=== PATIENT | male | born 1940 | race Caucasian/White ===

== ENCOUNTER 2018-01-08 07:00 | Day surgery (SDC) | payer OTHER ==
[2018-01-04 16:03] LABS: Absolute Lymphocytes (CBC) 2.7 K/uL (0.7-4.9); Absolute Monocytes 0.8 K/uL (0.1-1.3); Absolute Neutrophil 4.2 K/uL (1.8-8.0); Basophils % 0.6 % (0-1.3); Eosinophils % 1.7 % (0-4.4); Hematocrit 43.1 % (39.6-49.0); Lymphocytes % 33.9 % (15.3-44.8); MCH 31.7 pg (27.0-35.0); MCV 94.8 fL (80-100); MPV 8.2 fL (7.6-11.3); Monocytes % 10.6 % (3.3-12.3); RBC Red Blood Cell Count 4.55 M/uL (4.33-5.43)
[2018-01-04 16:07] LABS: Protime INR 0.98
[2018-01-04 16:15] LABS: BUN Blood Urea Nitrogen 16 mg/dL (6-20); Bicarbonate 24 mEq/L (21-31); Glucose Level 113 mg/dL (65-120); Potassium 4.1 mEq/L (3.6-5.0); Sodium Level 137 mEq/L (135-145)
--- NOTE | 2018-01-04 16:21 | RAD REPORT ---
EXAM DESCRIPTION: RAD - Chest Pa And Lat (2 Views) - 01/04/2018 3:56 pm CLINICAL HISTORY: Preop chest, pending cardiac catheterization COMPARISON: July 2011 TECHNIQUE: PA and lateral views of the chest were obtained. FINDINGS: The lungs are clear. Interstitial markings are not significantly different from compariso n. Heart size is normal and central vasculature is within normal limits. No pleural effusion or pneu mothorax seen. No acute bony finding noted. No aortic abnormality. IMPRESSION: No acute cardiopulmonary process. No significant or suspicious change from comparison e xam.
[~2018-01-08 07:00] MED LIST: ATROPINE SULF 1 MG/10 ML SYR IV ONE; HEPA 1000U/500MLS 2,000 UNIT/1,000 ML BAG IV ONE; HEPARIN 5000 UNIT/ML 1 ML VIAL ONE; NA CHLORIDE 0.9% 0 ML ONE; NA CHLORIDE 0.9% 500 ML ONE; NICARDIPINE HCL 25 MG/10 ML IV ONE; NITROGLYCERIN/D5W 25 MG/250 ML BTL IV ONE
--- OUTSIDE RECORDS SUMMARY | 2018-01-08 07:12 | XMS REPORT | Clinical Summary ---
:1940 Author Organization [facility] Address [address] [place] [address] Care Team Providers Name Role Phone Lauren Youssef MD Primary Care Provider Unavailable Allergies Active Allergy Reactions Severity Noted Date Comments Gabapentin 01/10/2017 Promethazine 01/10/2017 Bacitracin-Polymyxin B Swelling 01/10/2017 Current Medications Prescription Sig. Disp. Refills Start Date End Date Status clopidogrel Take 75 mg by Active (PLAVIX) 75 mg mouth daily. tablet niacin 500 MG Take 500 mg by Active tablet mouth daily with breakfast. ezetimibe-simvastat Take 1 tablet Active in (VYTORIN) 10-10 by mouth mg per tablet nightly. omega Take by mouth. Active 1-sxj-rfy-fish oil (FISH OIL) 1,000 mg (120 mg-180 mg) capsule aspirin (ECOTRIN) Take 81 mg by Active 81 MG enteric mouth daily. coated tablet MULTIVIT-MIN/FA/LYC Take by mouth. Active OPEN/LUTEIN (CENTRUM SILVER MEN ORAL) esomeprazole Take 40 mg by Active (NexIUM) 40 MG mouth daily capsule before breakfast. PRN meloxicam (MOBIC) Take 7.5 mg by Active 7.5 mg tablet mouth daily. PRN tamsulosin (FLOMAX) Take 0.4 mg by 01/13/2017 Discontinued 0.4 mg mouth daily. capsule,extended release 24hr acetaminophen-codei Take 1-2 30 tablet 0 01/13/2017 01/20/2017 ne (TYLENOL WITH tablets by CODEINE #3) 300-30 mouth every 6 mg per tablet (six) hours as needed for moderate pain for up to 7 days. ciprofloxacin Take 1 tablet 14 tablet 0 01/13/2017 01/20/2017 (CIPRO) 500 MG (500 mg total) tablet by mouth 2 (two) times a day for 7 days. hyoscyamine Take 1 tablet 30 tablet 2 01/13/2017 02/12/2017 (LEVSIN/SL) 0.125 (0.125 mg mg SL tablet total) by mouth every 4 (four) hours as needed for cramping for up to 30 days. Active Problems No known active problems Encounters Date Type Specialty Care Team Description 01/13/2017 Hospital Encounter General Surgery Shantelle Rausch MD 01/13/2017 Procedure Pass General Surgery 01/13/2017 Surgery General Surgery Shantelle Rausch CYSTEARL WOODS MD 01/12/2017 Anesthesia Event General Surgery Koby Gibbs MD after 01/07/2017 Social History Tobacco Use Types Packs/Day Years Used Date Former Smoker 2 5 Quit: 01/11/1968 Alcohol Use Drinks/Week oz/Week Comments Yes occasional Sex Assigned at Date Recorded Not on file Last Filed Vital Signs Vital Sign Reading Time Taken Blood Pressure 113/58 01/13/2017 4:10 PM CDT Pulse 71 01/13/2017 4:10 PM CDT Temperature 36.6 C (97.9 F) 01/13/2017 4:10 PM CDT Respiratory Rate 18 01/13/2017 4:10 PM CDT Oxygen Saturation 98% 01/13/2017 4:10 PM CDT Inhaled Oxygen Concentration - - Weight 81.6 kg (180 lb) 01/10/2017 12:08 PM CDT Height 170.2 cm (5' 7") 01/10/2017 12:08 PM CDT Body Mass Index 28.19 01/10/2017 12:08 PM CDT Plan of Treatment Health Maintenance Due Date Last Done Comments SHINGRIX VACCINE (#1) 1989 ZOSTER VACCINE 1999 PNEUMOCOCCAL POLYSACCHARIDE VACCINE AGE 65 AND OVER 2004 PNEUMOCOCCAL-13 2004 INFLUENZA VACCINE 03/07/2018 Procedures Procedure Name Priority Date/Time Associated Diagnosis Comments [place] AN ELECTIVE Routine 01/13/2017 2:24 PM SUPRAGLOTTIC AIRWAY CDT Procedure Note - Rm Cazares MD - 01/13/2017 2:23 PM CDT Airway Date/Time: 01/13/2017 2:17 PM Performed by: RM CAZARES Authorized by: RM CAZARES Location: OR Urgency: Elective Difficult Airway: No Anesthesiologist: RM CAZARES Preoxygenated with 100% O2: Yes C-spine Precautions Maintained Throughout: Yes Mask Ventilation: Easy mask Final Airway Type: Supraglottic airway Final LMA: Classic LMA Size: 4 Number of Attempts at Approach: 1 CYSTOSCOPY, TURP 01/13/2017 1:30 PM CDT N40.1 Special Needs O/P after 01/07/2017 Results Sodium level, whole blood (01/13/2017 1:11 PM) Component Value Ref Range Sodium, whole blood 142 135 - 148 mEq/L Specimen Performing Laboratory Plasma specimen [facility] PATHOLOGY AND [facility] MED[facility] [address] [place] [phone] Potassium, whole blood (01/13/2017 1:11 PM) Component Value Ref Range Potassium, whole blood 4.1 3.5 - 5.5 mEq/L Specimen Performing Laboratory Plasma specimen [facility] PATHOLOGY AND [facility] [address] [place] [address] Glucose, whole blood (01/13/2017 1:11 PM) Component Value Ref Range Glucose, whole blood 112 (H) 65 - 99 mg/dL Specimen Performing Laboratory Plasma specimen [facility] PATHOLOGY [address] [address] Creatinine, whole blood (01/13/2017 1:11 PM) Component Value Ref Range Creatinine, whole blood 0.8 0.5 - 1.5 mg/dL Specimen Performing Laboratory Plasma specimen [facility] PATHOLOGY AND [facility] [address] [place] [phone] BUN, whole blood (01/13/2017 1:11 PM) Component Value Ref Range BUN, whole blood 16 5 - 26 mg/dL Specimen Performing Laboratory Plasma specimen [facility] PATHOLOGY AND [facility] [address] [place] [phone] HCT, whole blood (01/13/2017 1:11 PM) Component Value Ref Range Hematocrit, whole blood 42.0 36.0 - 50.0 % Specimen Performing Laboratory Plasma specimen [facility] PATHOLOGY [address] [address] Hemoglobin, whole blood (01/13/2017 1:11 PM) Component Value Ref Range Hemoglobin, whole blood 14.3 11.0 - 17.0 g/dL Comment: POC testing for Sodium, Potassium, Glucose, Urea, Creatinine, Hemoglobin, and Hematocrit performed in Perioperative Services. Test result (s) entered into LIS by Laboratory Services. Specimen Performing Laboratory Plasma specimen [facility] DEPARTMENT OF PATHOLOGY AND GENOMIC MEDICINE [address] [place] [phone] Urinalysis screen and microscopy, with reflex to culture (01/13/2017 12:40 PM) Component Value Ref Range Specimen site Clean catch Color, UA Yellow YELLOW Appearance, UA Clear Clear Specific gravity, UA 1.020 1.005 - 1.030 pH, UA 5.5 5.0 - 8.0 Protein, UA Negative Negative Glucose, UA Negative Negative Ketones, UA Negative Negative Bilirubin, UA Negative Negative Blood, UA Negative Negative Nitrite, UA Negative NEGATIVE Urobilinogen, UA <2.0 <2.0 E.U./dL Leukocyte esterase, UA Negative Negative WBC, UA <1 0 - 5 /Hpf RBC, UA 1 0 - 5 /HPF Bacteria, UA None seen None seen Yeast, UA None seen None Seen Yeast with pseudohyphae, UA None seen Specimen Performing Laboratory Urine [facility] OF PATHOLOGY AND GENOMIC MEDICINE [address] [place] [phone] Urine culture (01/13/2017 12:40 PM) Component Value Ref Range Urine culture SEE COMMENTComment: Bacteriuria screen negative. Specimen Performing Laboratory [facility] OF PATHOLOGY AND GENOMIC MEDICINE [address] [place] [phone] Surgical pathology request (01/13/2017 10:47 AM) Component Value Ref Range Surgical pathology report See link below for PDF Lab Report Specimen Performing Laboratory [facility] DEPARTMENT OF PATHOLOGY AND GENOMIC MEDICINE [address] [place] [address] ECG 12 lead (01/10/2017 12:52 PM) Component Value Ref Range Ventricular rate 49 Atrial rate 49 [place] interval 198 QRSD interval 86 QT interval 480 QTC interval 433 P axis 1 57 QRS axis 1 19 T wave axis 64 EKG impression Marked sinus bradycardia-Abnormal ECG-- Specimen Performing Laboratory [facility] [address] [place] [address] Estimated GFR (01/10/2017 12:43 PM) Component Value Ref Range GFR Non Af Amer 82 mL/min/1.73 m2 GFR Af Amer >90 mL/min/1.73 m2 Comment: Chronic kidney disease: <60 mL/min/1.73m2 Kidney failure: <15 mL/min/1.73m2 The estimated GFR is calculated from the IDMS-traceable Modification of Diet in Renal Disease Equation. The accuracy of the calculation is poor when the creatinine is normal. Calculated values >90 mL/min/1.73m2 are not reported. This equation has not been validated in children (<18 years), women, the elderly (>70 years), or ethnic groups other than Caucasians and Americans. Specimen Performing Laboratory Plasma specimen [facility] DEPARTMENT OF PATHOLOGY AND GENOMIC MEDICINE [address] [place] [address]. [address] [place] [address] Basic metabolic panel (01/10/2017 12:43 PM) Component Value Ref Range Sodium 144 135 - 148 mEq/L Potassium 5.3 (H) 3.5 - 5.0 mEq/L Chloride 104 99 - 109 mEq/L CO2 28 24 - 31 mEq/L Anion gap 12 7 - 15 mEq/L Comment: Starting from November , anion gap calculation no longer incorporates potassium. Please note the change. BUN 17 8 - 24 mg/dL Creatinine 0.9 0.5 - 1.5 mg/dL Glucose 93 65 - 99 mg/dL Calcium 9.7 8.6 - 10.6 mg/dL Specimen Performing Laboratory Plasma specimen [facility] DEPARTMENT OF PATHOLOGY AND GENOMIC MEDICINE [id number] [place] [address]. [address] [place] [phone] after 01/07/2017 Insurance Payer Benefit Plan / Group Subscriber ID Type Phone Address [employer] MED[employer]ARE AETNA MEDICARE HMO/PPO [facility] xxxxxxxx HMO Home: [id number] via [phone] [address]
[2018-01-08] MEDS ORDERED: LIDOCAINE 1% 20 ML MDV ONE (07:37)
[2018-01-08] MEDS ORDERED: MIDAZOLAM HCL 2 MG/2 ML INJ ONE ×2 (07:37→08:10)
[2018-01-08] MEDS ORDERED: FENTANYL CITR 100 MCG/2 ML ONE (07:37)
--- NOTE | 2018-01-08 11:08 | OP ---
Surgeon: Vick Kaye MD Procedure: Left heart catheterization, coronary left ventricular angiography. Procedure Findings: The patient has a totally occluded right coronary artery. He gets collateral fl ow from the circumflex and second diagonal coronary arteries with DWAIN-3 collateral flow. The LAD dumont s occluded distally. It is after a very large first and second diagonal. The second diagonal is par ticularly large. The occluded LAD fills from collaterals from the RV branch of the right coronary. Left ventricular ejection fraction about 45%. There is akinesis of the inferior wall. The proximal LAD and both of its large diagonals are free of any stenosis and the circumflex is free of any stenos is. Stents in the LAD and circumflex are widely patent. The right coronary is occluded within an ol d stent and the recommendation is for continued medical therapy. 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 Procedure In Detail: The patient was brought to the cardiac parking lot laborer in a fasting state, prepared an d draped in usual sterile fashion. Right radial approach was used. Tissues over the right radial ar tc were anesthetized using 1% lidocaine. The artery was entered using a 21-gauge needle. A 0.021 inch diameter guidewire was used to cannulate the artery and then modified Seldinger technique allowe d us to place a 6-Syriac Terumo radial sheath in place. This was flushed. Radial cocktail was given consisting of nicardipine, heparin, nitroglycerin. We guided a TIG catheter into the ascending aort a using fluoroscopy and a Terumo Glidewire with a short radius J-tip. We were then able to cannulate left main, right coronary, and left ventricle using the same catheter. At the end of the procedure, a decision was made for no interventions, no surgery. The catheter was removed over a guidewire. No c omplications from the procedure. SIMEON/YOSEF Voice ID: [id number] Report ID: [id number]
== END 2018-01-08 10:46 | disposition home or self-care (01) ==
LOC: CCL 07:00
PROVIDERS: ATTEND Internal Medicine
DX: I25.10 Atherosclerotic heart disease of native coronary artery without angina pectoris (principal); I25.82 Chronic total occlusion of coronary artery; I10 Essential (primary) hypertension; F17.210 Nicotine dependence, cigarettes, uncomplicated; E78.2 Mixed hyperlipidemia; Z95.5 Presence of coronary angioplasty implant and graft; Z82.49 Family history of ischemic heart disease and other diseases of the circulatory system
CPT/HCPCS: 36415; 71046; 80048; 85025; 85610; 85730; 93458; C1893; J1644; J2250; J3010; J0583